=== PATIENT | male | born 1965 | race African-American/Black ===

== ENCOUNTER 2016-12-20 14:37 | Emergency (ER) | payer SELFPAY ==
[~2016-12-20] VITALS: Ht 172.7 cm; Wt 74.1 kg
[~2016-12-20 14:37] MED LIST: BENZ1TAB70 PO; DIVA250T4 PO; QUET400T PO
[2016-12-20] MEDS ORDERED: LITH300C3 PO (14:55)
[2016-12-20] MEDS ORDERED: OLAN2.5T3 PO (14:55)
[2016-12-20 15:27] LABS: BASOPHILS % (AUTO) 0.8 % (0.0-2.0); EOSINOPHILS % (AUTO) 1.6 % (1.0-6.0); HEMATOCRIT 45.3 % (41-53); HEMOGLOBIN 14.6 g/dL (13.5-17.5); LYMPHOCYTES # (AUTO) 1.5 K/uL (1.0-4.8); LYMPHOCYTES % (AUTO) 34.3 % (22.0-44.0); MEAN CORPUSCULAR HEMOGLOBIN 26.9 pg (26.0-34.0); MEAN CORPUSCULAR HGB CONC 32.2 G/dL (31.0-37.0); MEAN CORPUSCULAR VOLUME 83 fL (80-100); MONOCYTES # (AUTO) 0.6 K/uL (0.1-1.0); MONOCYTES % (AUTO) 13.4 % (2.0-9.0); NEUTROPHILS # (AUTO) 2.2 K/uL (1.8-7.7); NEUTROPHILS % (AUTO) 49.9 % (40.0-70.0); PLATELET COUNT (AUTO) 187 K/uL (150-450); RED BLOOD CELL COUNT(AUTO) 5.42 MIL/uL (4.50-5.90); RED CELL DISTRIBUTION WIDTH 13.9 % (11.5-14.5); WHITE BLOOD COUNT (AUTO) 4.4 K/uL (4.5-11.0)
[2016-12-20 15:52] LABS: LITHIUM < 0.20 mmol/L (0.60-1.20)
[2016-12-20 16:31] LABS: RBC MORPHOLOGY COMMENT NORMAL RBC MORPH
[2016-12-20 16:35] LABS: ANION GAP 10 mmol/L (8-16); CALCIUM, TOTAL 8.7 mg/dL (8.8-10.5); CARBON DIOXIDE 27 mmol/L (22-29); CHLORIDE 101 mmol/L (98-107); CREATININE 1.06 mg/dL (0.60-1.30); GLOMERULAR FILTR. RATE CALC > 60 mL/min (>60); POTASSIUM 4.2 mmol/L (3.5-5.1); SODIUM SERUM 138 mmol/L (136-145); UREA NITROGEN, BLOOD 8 mg/dL (7-18)
[2016-12-20 16:49] LABS: ALANINE AMINOTRANSFERASE 45 U/L (12-78); ALBUMIN 3.6 g/dL (3.4-5.0); ASPARTATE AMINOTRANSFERASE 37 U/L (15-37); BILIRUBIN,TOTAL 0.6 mg/dL (0.1-1.0); TOTAL PROTEIN, SERUM 7.4 g/dL (6.4-8.2)
[2016-12-20 19:40] VITALS: BP 115/67
== END 2016-12-20 19:42 | disposition home or self-care (01) ==
LOC: EMS 14:39
DX: R10.10 Upper abdominal pain, unspecified (principal); R10.32 Left lower quadrant pain; E11.9 Type 2 diabetes mellitus without complications; E78.00 Pure hypercholesterolemia, unspecified; I10 Essential (primary) hypertension; F17.210 Nicotine dependence, cigarettes, uncomplicated
CPT/HCPCS: 74022; 99285

== ENCOUNTER 2016-12-23 09:12 | Emergency (ER) | payer SELFPAY ==
[~2016-12-23] VITALS: Ht 175.3 cm; Wt 51.0 kg
[~2016-12-23 09:12] MED LIST changes: -BENZ1TAB70 PO; -DIVA250T4 PO; +LITH300C3 PO; +OLAN2.5T3 PO; -QUET400T PO
[2016-12-23 09:34] VITALS: BP 108/74
== END 2016-12-23 09:53 | disposition left against medical advice (07) ==
LOC: EMS 09:13
DX: Z76.0 Encounter for issue of repeat prescription (principal); Z53.21 Procedure and treatment not carried out due to patient leaving prior to being seen by health care provider

== ENCOUNTER 2016-12-24 08:52 | Emergency (ER) | payer SELFPAY ==
[~2016-12-24] VITALS: Ht 175.3 cm; Wt 68.6 kg
[2016-12-24 08:54] VITALS: BP 115/67
== END 2016-12-24 09:40 | disposition left against medical advice (07) ==
LOC: EMS 08:54
DX: R05 Cough (principal); E11.9 Type 2 diabetes mellitus without complications; E78.00 Pure hypercholesterolemia, unspecified; F17.210 Nicotine dependence, cigarettes, uncomplicated; Z53.21 Procedure and treatment not carried out due to patient leaving prior to being seen by health care provider